=== PATIENT | female | born 1960 | race Caucasian/White ===

== ENCOUNTER 2018-08-29 19:55 | Emergency (ER) | payer SELFPAY ==
--- NOTE | 2018-08-29 20:59 | C.PDOC ---
History Of Present Illness 58 y/o female presents to the ER complaining of intermittent right breast pain which began yesterday. Patient states that the pain is mainly in the nipple and the pain radiates to the axilla. she was evaluated at [facility] yesterday. Patient reports that the clinic staff advised her to go the ER for further evaluation and testing.Patient notes that the pain had improved so she did not come yesterday. However, she notes that the pain became worse today and she rates the pain 9/10. She states that she did not take any medications for the pain.Denies having nipple discharge, trauma, edema, erythema, recent illness, fever, and chills. Of note, patient had her last mammogram 1 year ago. Chief Complaint (Nursing): Breast Problem History Per: Patient History/Exam Limitations: no limitations Onset/Duration Of Symptoms: Days Current Symptoms Are (Timing): Still Present Severity: Moderate Past Medical History Reviewed: Historical Data, Nursing Documentation, Vital Signs Vital Signs: Last Vital Signs Temp 98 F 08/29/18 20:01 Pulse 64 08/29/18 20:01 Resp 20 08/29/18 20:01 BP 136/83 08/29/18 20:01 Pulse Ox 99 08/29/18 20:01 - Medical History PMH: No Chronic Diseases Other Surgeries: Hx of surgeries Family History: States: No Known Family Hx - Social History Hx Alcohol Use: No Hx Substance Use: No - Immunization History Hx Tetanus Toxoid Vaccination: No Hx Influenza Vaccination: No Hx Pneumococcal Vaccination: No Review Of Systems Constitutional: Negative for: Fever, Chills Musculoskeletal: Positive for: Other (right breast pain) Physical Exam - Physical Exam Appears: Non-toxic, No Acute Distress Skin: Normal Color, Warm, Dry Head: Atraumatic, Normacephalic Eye(s): bilateral: Normal Inspection Nose: Normal Oral Mucosa: Moist Neck: Supple Chest: Symmetrical, Tenderness (mild tenderness to palpation over right nipple/areola area, no nipple discharge, no obvious masses) Cardiovascular: Rhythm Regular Respiratory: Normal Breath Sounds, No Rales, No Rhonchi, No Wheezing Gastrointestinal/Abdominal: Soft, No Tenderness Back: No CVA Tenderness Neurological/Psych: Oriented x3, Normal Speech, Normal Motor, Normal Sensation ED Course And Treatment O2 Sat by Pulse Oximetry: 99 (RA) Pulse Ox Interpretation: Normal - CT Scan/US Right breast ultrasound Other Rad Studies (CT/US): Read By Radiologist Medical Decision Making Medical Decision Making: Plan: --US-R. Breast - pending report --Will notify patient tomorrow with results -- D/W need for further imaging with Mammogram --patient verbalized understanding and will follow up in Clinic Patient is stable for discharge Disposition Counseled Patient/Family Regarding: Diagnosis, Need For Followup, Rx Given - Disposition [facility] [Outside] Disposition: HOME/ ROUTINE Disposition Time: 00:03 Condition: STABLE Additional Instructions: Follow up in [facility], [place], or [facility] for Ultrasound/ Mammogram referral to further assess for breast pain The Ultrasound today was limited Take Tylenol as needed for pain Return to ED if symptoms worsen Prescriptions: Acetaminophen [Tylenol] 325 mg PO Q6 PRN #30 capsule PRN Reason: Pain, Moderate (4-7) Instructions: Common Breast Problems, Mastalgia (DC) Forms: [employer] (Slovenian) Print Language: ENGLISH - Clinical Impression Clinical Impression: Pain of breast - 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 - Scribe Statement The provider has reviewed the documentation as recorded by the Digna Donaldson Provider Attestation All medical record entries made by the [place] were at my direction and personally dictated by me. I have reviewed the chart and agree that the record accurately reflects my personal performance of the history, physical exam, medical decision making, and the department course for this patient. I have also personally directed, reviewed, and agree with the discharge instructions and disposition. Addendum Addendum: 08/30/18 22:39 Contacted patient as noted in chart Left Voicemail with below results with cellophane bath mixer Encouraged patient to follow up in Clinic for Mammogram/ US referral Advised patient to contact the ED if she has any further questions or concerns Date of service: 08/29/2018 Procedure Right breast limited targeted ultrasound. Right nipple area scanned. History Right Nipple Pain for 2 days. No prior Comparison None. Findings There is no evidence of obvious abnormality seen. Impression No evidence of obvious abnormality seen in the right nipple area.
--- NOTE | 2018-08-29 21:22 | C.PDOC ---
Chief Complaint (Nursing): Breast Problem Past Medical History Vital Signs: Last Vital Signs Temp 98 F 08/29/18 20:01 Pulse 64 08/29/18 20:01 Resp 20 08/29/18 20:01 BP 136/83 08/29/18 20:01 Pulse Ox 99 08/29/18 20:01 Family History: States: Unknown Family Hx - Social History Hx Alcohol Use: No Hx Substance Use: No - Immunization History Hx Tetanus Toxoid Vaccination: No Hx Influenza Vaccination: No Hx Pneumococcal Vaccination: No ED Course And Treatment O2 Sat by Pulse Oximetry: 99 Disposition - Disposition
[2018-08-29 23:42] VITALS: BP 130/80; PULSE 78; RESP 18; TEMP 97.9
[2018-08-30] VITALS: O2SAT 99
--- NOTE | 2018-08-30 13:10 | US ---
Date of service: 08/29/2018 PROCEDURE: Limited right breast ultrasound HISTORY: Right nipple pain COMPARISON: None TECHNIQUE: Targeted high-resolution ultrasound of the right breast was performed at the site of patient's pain. FINDINGS: There is heterogeneous background echotexture. No solid or cystic masses. No retroareolar ductal dilatation. IMPRESSION: No sonographic abnormality at the site of patient's pain in the right nipple area. Clinical follow-up is advised. A preliminary report was provided by [employer].
== END 2018-08-30 00:10 | disposition home or self-care (01) ==
LOC: C.ER 19:55
DX: N64.4 Mastodynia (principal)

== ENCOUNTER 2018-10-24 10:36 | Outpatient (CLI) | payer OTHER | END 2018-10-24 10:37 | disposition home or self-care (01) | LOC: C.MAMMO 10:37 ==